=== PATIENT | female | born 1970 | race Caucasian/White ===

== ENCOUNTER → 2020-10-08 18:27 | Outpatient (CLI) | payer BC, SELFPAY ==
--- NOTE | ~2020-10-08 | MM_ITS ---
EXAMINATION: MM screening [facility] BI w gael HISTORY: Screening mammogram TECHNIQUE: Craniocaudal and mediolateral oblique 3-D tomosynthesis images were obtained and synthetic 2-D images were generated. CAD analysis was submitted and interpreted. COMPARISON: 08/14/2019, 07/21/2018, 05/16/2017 BREAST PARENCHYMAL COMPOSITION: The breasts are heterogeneously dense, which may obscure small masses . FINDINGS: There is no evidence of suspicious mass, calcification, or architectural distortion to sugg est malignancy in either breast. There has been no suspicious interval change. IMPRESSION: 1. No mammographic evidence of malignancy. 2. Recommend routine screening mammography in one year. BI-RADS Category 1: Negative Reviewed, dictated and finalized at location A. N DIPPER
== END ==
PROVIDERS: PCP Obstetrics & Gynecology; Visit Provider Obstetrics & Gynecology
DX: Z12.31 Encounter for screening mammogram for malignant neoplasm of breast (principal)
CPT/HCPCS: 77063; 77067

== ENCOUNTER 2020-10-14 13:28 | Outpatient (CLI) | payer BC, SELFPAY ==
--- NOTE | ~2020-10-14 | DEXA_ITS ---
Bone Density Report Name: Nova Plaza Age: 50 Sex: Female Ethnicity: White Date of : 1970 Indication: postmenopausal; height loss; Referring Provider: FRANCES MARIA Study: Bone densitometry was performed. Exam Date: October 14, 2020 Accession number: [id number] Bone Density: Region BMD T-score Z-score Classification AP Spine (L1-L4) 1.207 1.5 2.3 Normal Femoral Neck (Left) 0.797 -0.5 0.3 Normal Total Hip (Left) 1.034 0.8 1.3 Normal Total Hip Bilateral Avg 1.024 0.7 1.2 Normal Femoral Neck (Right) 0.798 -0.5 0.3 Normal Total Hip (Right) 1.013 0.6 1.1 Normal World Health Organization criteria for BMD impression classify patients as: Normal (T-score at or above -1.0), Osteopenia (T-score between -1.0 and -2.5), or Osteoporosis (T-score at or below -2.5). 10-year Fracture Risk: FRAX not reported because: All T-scores for Spine Total, Hip Total, Femoral Neck at or above -1.0 Clinical Information Provided by Patient: Smokes Has used the following medications: Vitamin D Patient maximum height was 68 Menopause Age: 47 No regular weight bearing exercise Drinks caffeinated beverages Onset of menses at age 12 Number of children 3 Impression: The patient has normal bone mass. The patient has risk factors, including: smoking. Discussion: BONE DENSITY IS ABOVE THE MINIMUM DESIRABLE LEVEL AT ALL SKELETAL SITES TESTED. This patient?s bone mineral density is above the minimum desirable level (T-score -1.0 or better) at all sites measured. The patient should follow a healthful lifestyle (good nutrition with adequate calcium and vitamin D, and appropriate weight-bearing exercise). Follow-Up: Consider repeating this study in 5 years or sooner if there is some new clinical indication. Reported by: [facility] on 10/14/2020 1:47:00 PM. Reviewed, dictated and finalized at location ADeep HANDY
== END 2020-10-14 13:29 | disposition home or self-care (01) ==
PROVIDERS: PCP Obstetrics & Gynecology; Visit Provider Obstetrics & Gynecology
DX: R29.890 Loss of height (principal); Z78.0 Asymptomatic menopausal state
CPT/HCPCS: 77080

== ENCOUNTER 2020-11-04 00:39 | Outpatient (CLI) | payer BC, SELFPAY ==
[2020-11-04 18:51] LABS: SARS-CoV-2 RNA PCR Negative
== END 2020-11-04 00:40 | disposition home or self-care (01) ==
LOC: ANHCOVIDDT 00:39
PROVIDERS: PCP Obstetrics & Gynecology; Visit Provider Internal Medicine Gastroenterology
DX: Z01.818 Encounter for other preprocedural examination (principal); Z20.828 Contact with and (suspected) exposure to other viral communicable diseases
CPT/HCPCS: 87635; C9803; U0003

== ENCOUNTER 2020-11-07 00:33 | Day surgery (SDC) | payer BC, SELFPAY ==
[2020-11-07 07:24] VITALS: BP 137/89; PULSE 84; RESP 20; TEMP 36.6; O2SAT 96; BMI 28.7
[2020-11-07] MEDS: LACTATED RINGERS 1,000 ML 150 ML IV CONT (07:40)
--- NOTE | 2020-11-07 07:57 | WPDANESEPPF ---
Anes - Initial Pre Proc Eval Procedure: Operation Date: 11/07/20 08:30 Proposed Procedures p Screening Colonoscopy - Octavio Ledesma MD Date/Time: 11/07/20 07:57 Surgeon: Octavio Ledesma MD Pre Op Diagnosis: neoplasm Screening Patient Data Age: 50 Gender: F Height: 5 ft 5 in Weight: 78.2 kg Last Vital Signs Temp 97.8 F 11/07/20 07:24 Pulse 84 11/07/20 07:24 Resp 20 11/07/20 07:24 BP 137/89 11/07/20 07:24 Pulse Ox 96 11/07/20 07:24 Allergies Allergy/AdvReac Type Severity Reaction Status Date / Time Penicillins Allergy Unknown Hives Verified 11/07/20 07:21 Home Medications Medication Instructions Recorded Confirmed Type cetirizine 10 mg tablet 10 mg PO DAILY 09/02/20 10/29/20 History bupropion HCl 150 mg tablet,12 hr 150 mg PO DAILY #90 tablet 09/05/20 10/29/20 Rx sustained-release buspirone 7.5 mg tablet 7.5 mg PO DAILY #90 tablet 09/05/20 10/29/20 Rx hydroxyzine HCl 25 mg tablet 25 mg PO TID PRN #30 tablet 09/05/20 10/29/20 Rx nitrofurantoin 100 mg PO Q12H #15 cap 09/05/20 10/29/20 Rx monohydrate/macrocrystals 100 mg capsule progesterone micronized 100 mg 100 mg PO .QHS cap 09/05/20 10/29/20 History capsule sertraline 50 mg tablet 50 mg PO DAILY #90 tablet 09/05/20 10/29/20 Rx spironolactone 50 mg tablet 50 mg PO DAILY PRN 09/05/20 10/29/20 History multivitamin [A To Z Multivitamin] 1 tablet PO DAILY 10/29/20 10/29/20 History thyroid (pork) [[place] Thyroid] 90 mg PO DAILY 10/29/20 10/29/20 History peg 3350-electrolytes 236 240 ml PO Q10M #4000 ml 11/04/20 Rx gram-22.74 gram-6.74 gram-5.86 gram solution Patient hx anesthesia problems: none Family hx anesthesia problems: none PMFSH Past Medical History Medical History Depression with anxiety Frequent UTI Herpes Miscarriage Surgical History Surgical History Delivery by section x3 History of abdominoplasty History of dilatation and curettage x3 Family History Family History Grandparent Hypertension Diabetes mellitus Mother Hypertension Family history of malignant neoplasm of uterus Heart disease Father Heart disease Other Carcinoma of colon Family history of malignant neoplasm of male breast Social History Social History Smoking status: Current some day smoker Tobacco type: cigarettes Second hand tobacco smoke exposure: No Smoking end date: 11/28/07 Alcohol intake: current Drinks per week: 10 Substance use: unknown Substance use type: does not use Spiritual care concerns: No Anes - Eval Final PreProcedure Day of Procedure 11/07/20 07:57 Patient weight: overweight Heart: regular rate and rhythm Lungs: clear to auscultation Airway: Mallampati scale class II Neurological: alert and oriented Last oral intake: >/= 8 hours ASA classification: II Emergent: no Anesthetic plan: proceed Anesthesia type and monitoring: general GIVS and standard monitoring Informed Consent: The patient's anesthetic plan and its attendant risks and benefits were discussed with the patient/family/POA. Questions were solicited and answers provided to the satisfaction of the patient/family/POA.
--- NOTE | 2020-11-07 08:43 | PM.HPGS ---
History of Present Illness History of Present Illness Consent: Risks, benefits, and alternatives have been discussed and questions answered. Patient agrees to proceed with procedure. Chief complaint: neoplasm Screening Narrative: Nova Plaza is a 50 year old female here for first screening colonoscopy Review of Systems Constitutional: Constitutional: Denies headache(s) and Denies weakness Eyes: Eyes: Denies blurry vision ENT: Reports Normal hearing present, Denies headache(s) and Denies neck pain Cardiovascular: Cardiovascular: Denies chest pain and Denies dyspnea Respiratory: Respiratory: Denies dyspnea Gastrointestinal: Gastrointestinal: Reports no additional gastrointestinal complaints Genitourinary: Genitourinary: Denies dysuria Musculoskeletal: Musculoskeletal: Denies neck pain Integumentary/Breasts: Skin/Breast: Denies dry skin Neurologic: Reports Normal hearing present, Denies headache(s) and Denies weakness Psychiatric: Psychiatric: Denies anxiety Endocrine: Endocrine: Denies change in body appearance Hematologic/Lymphatic: Hematologic/Lymphatic: Denies easy bleeding Allergic/Immunologic: Allergic/Immunologic: Denies urticaria PMFSH Past Medical History Medical History Depression with anxiety Frequent UTI Herpes Miscarriage Surgical History Surgical History Delivery by section x3 History of abdominoplasty History of dilatation and curettage x3 Family History Family History Grandparent Hypertension Diabetes mellitus Mother Hypertension Family history of malignant neoplasm of uterus Heart disease Father Heart disease Other Carcinoma of colon Family history of malignant neoplasm of male breast Social History Social History Smoking status: Current some day smoker Tobacco type: cigarettes Second hand tobacco smoke exposure: No Smoking end date: 11/28/07 Alcohol intake: current Drinks per week: 10 Substance use: unknown Substance use type: does not use Spiritual care concerns: No Meds Home Medications and Allergies Home Medications Medication Instructions Recorded Confirmed Type cetirizine 10 mg tablet 10 mg PO DAILY 09/02/20 10/29/20 History bupropion HCl 150 mg tablet,12 hr 150 mg PO DAILY #90 tablet 09/05/20 10/29/20 Rx sustained-release buspirone 7.5 mg tablet 7.5 mg PO DAILY #90 tablet 09/05/20 10/29/20 Rx hydroxyzine HCl 25 mg tablet 25 mg PO TID PRN #30 tablet 09/05/20 10/29/20 Rx nitrofurantoin 100 mg PO Q12H #15 cap 09/05/20 10/29/20 Rx monohydrate/macrocrystals 100 mg capsule progesterone micronized 100 mg 100 mg PO .QHS cap 09/05/20 10/29/20 History capsule sertraline 50 mg tablet 50 mg PO DAILY #90 tablet 09/05/20 10/29/20 Rx spironolactone 50 mg tablet 50 mg PO DAILY PRN 09/05/20 10/29/20 History multivitamin [A To Z Multivitamin] 1 tablet PO DAILY 10/29/20 10/29/20 History thyroid (pork) [[place] Thyroid] 90 mg PO DAILY 10/29/20 10/29/20 History peg 3350-electrolytes 236 240 ml PO Q10M #4000 ml 11/04/20 Rx gram-22.74 gram-6.74 gram-5.86 gram solution Allergies Allergy/AdvReac Type Severity Reaction Status Date / Time Penicillins Allergy Unknown Hives Verified 11/07/20 07:21 Vital Signs Vital Signs - 24 hr 11/07/20 07:24 Temperature 97.8 F Pulse Rate 84 Respiratory Rate 20 Blood Pressure 137/89 Pulse Oximetry 96 Exam Const: General: comfortable and no acute distress HENMT: General nose exam: Normal nares present Eyes: General: appearance normal, both eyes and all related structures Neck: Neck: no JVD Resp: Auscultation: clear to auscultation bilaterally Cardio: Rate: regular rate Rhythm: regular rhythm GI: Inspection: non-distended GI Palp
[2020-11-07 09:05] VITALS: BP 121/69; PULSE 77; RESP 20; O2SAT 98
[2020-11-07 09:15] VITALS: BP 101/62; PULSE 75; RESP 16; O2SAT 99
== END 2020-11-07 09:39 | disposition home or self-care (01) ==
PROVIDERS: PCP Obstetrics & Gynecology; Visit Provider Internal Medicine Gastroenterology
PROC: 0DJD8ZZ Inspection of Lower Intestinal Tract, Via Natural or Artificial Opening Endoscopic (ICD-10-PCS; CPT 45378; principal; 2020-11-07 08:30)
DX: Z12.11 Encounter for screening for malignant neoplasm of colon (principal); K64.8 Other hemorrhoids; F41.8 Other specified anxiety disorders; Z87.891 Personal history of nicotine dependence
CPT/HCPCS: 45378; J2704; J7120

== ENCOUNTER 2021-11-02 14:19 | Outpatient (CLI) | payer BC, SELFPAY ==
--- NOTE | ~2021-11-02 | XR_ITS ---
EXAMINATION: XR lumbar spine 2-3V EXAM DATE: 11/02/2021 14:44 INDICATION: M54.50 - Low back pain, unspecified. NKI. TECHNIQUE: Lumber spine frontal, lateral, lateral L5-S1 projections for interpretation. There is no prior study for comparison. FINDINGS: There is mild lumbar levoscoliosis. There is mild to moderate L3-4 and L4-5 disc disease, mild at the other lumbar levels. The vertebral bodies are aligned in the AP dimension. Mild to modera te lumbar facet arthropathy. Sacrum, sacroiliac joints, sacral arcuate lines are intact. Paraspinal s oft tissue is unremarkable. IMPRESSION: 1. Mild to moderate lumbar spondylosis. 2. Mild levoscoliosis. Reviewed, dictated and finalized at location A. PRIMARY CARE
== END 2021-11-02 14:20 | disposition home or self-care (01) ==
LOC: ANHIMG 14:25
PROVIDERS: PCP Internal Medicine; Visit Provider Nurse Practitioner
DX: M47.896 Other spondylosis, lumbar region (principal)
CPT/HCPCS: 72100

== ENCOUNTER 2021-11-03 13:18 | Outpatient (CLI) | payer BC, SELFPAY ==
--- NOTE | ~2021-11-03 | MM_ITS ---
EXAMINATION: MM screening [facility] BI w gael HISTORY: Screening TECHNIQUE: Craniocaudal and mediolateral oblique 3-D tomosynthesis images were obtained and synthetic 2-D images were generated. CAD analysis was submitted and interpreted. COMPARISON: Comparison to multiple prior studies sequentially, with oldest reviewed study dated 02/07. BREAST PARENCHYMAL COMPOSITION: The breasts are heterogeneously dense, which may obscure small masses . FINDINGS: There is no evidence of suspicious mass, calcification, or architectural distortion to sugg est malignancy in either breast. There has been no suspicious interval change. IMPRESSION: 1. No mammographic evidence of malignancy. 2. Recommend routine screening mammography in one year. BI-RADS Category 1: Negative Reviewed, dictated and finalized at location A. POLISHER
== END 2021-11-03 13:19 | disposition home or self-care (01) ==
LOC: ANHIMG 13:22
PROVIDERS: PCP Internal Medicine; Visit Provider Obstetrics & Gynecology
DX: Z12.31 Encounter for screening mammogram for malignant neoplasm of breast (principal)
CPT/HCPCS: 77063; 77067

== ENCOUNTER 2021-11-25 17:00 | Outpatient (RCR) | payer BC, SELFPAY ==
--- NOTE | 2021-11-02 12:23 | PTOPEVAL ---
PHYSICAL THERAPY EVALUATION Thank you for referring Nova Plaza to [facility].? Nova was evaluated for the dx of mid/low back pain. The patient is scheduled to be seen for therapy? 2 x/week for 4 weeks. Please review, sign, date and return this plan of care ISAAC. I agree with and certify that the following plan of care is medically necessary. Referring Physician Date Attending Provider: Trina Jackson NP *PT Outpatient Evaluation Start: 11/02/21 08:41 Freq: Status: Active Protocol: Document 11/02/21 08:41 MLV (Rec: 11/02/21 09:40 MLV [id number]) Therapy Assessment Status Assessment Status Assessment Status Evaluation Evaluation Information Problem Diagnosis mid/low back pain Onset 2020 Cause increased activity Additional Evaluation Detail The patient reports being more active at home/work and began having back pain. The pain became severe, couldn't get off couch or walk. The patient received an injection in glut and 2 rounds of steroids by mouth and now is some better. 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 The patient denies any prior bad back issues. The pt has low back pain radiating up to mid back. The pain has increased pain after having a busier day-soreness. Subjective Information The patient has a 14 y/o that Query Text:As Reported By Patient/ is most of her social life Family after work. Diagnostic Tests X-Rays For This Problem No: pt has not gone to get it yet Previous Treatments Previous Treatments For This Problem none for back Pain Assessment Timing of Pain Assessment Timing of Pain Assessment Assessment Pain Scale Pain Scale Used Numeric (1 - 10) Self Report Pain Assessment Back Reported Pain Level 6 Pain Description Aching,Soreness Pain Frequency Acute Other Pain Description 7 at end of day Pain Aggravating Factors None Pain Behaviors Restless Pain Score Pain Score 6: Self Report Interventions Used Interventions Used By Clinicians Education Pain Relief Interventions Used By Medication,Position Change Patient Other Alleviating Inter
--- NOTE | 2021-11-30 10:28 | PCPTNOTE ---
pt did not show for today's reeval; called and left voice message about today's appt;
--- NOTE | 2021-12-01 11:55 | PCPTNOTE ---
Patient cancelled scheduled appointment this date due to insurance issues. Did not reschedule at this time.
--- NOTE | 2021-12-11 10:08 | PCPTNOTE ---
Admitting Provider: Attending Provider: Trina Jackson NP Patient:Nova Plaza Date of :1970 Physical therapy discharge summary Patient has not returned for any further treatments since 11/25/2021, therefore she will be discharged at this time. She called clinic to state she was feeling better and did not feel she needed additional therapy services. She has been provided home program to maintain her level of function. Patient?s initial visit was on 11/02/2021 08:30 anshe had a total of 8 visits. The goals have been partially met at this time. Thank you for referring this patient to [facility]. Please review, sign, date and return this discharge summary ISAAC. I have been updated about the patient's current status and I agree with discharge from the above service at this time. Referring Physician Date
== END 2021-12-14 08:31 | disposition home or self-care (01) ==
LOC: ANHPT 17:00
PROVIDERS: PCP Internal Medicine; Visit Provider Nurse Practitioner
DX: M54.50 Low back pain, unspecified (principal)
CPT/HCPCS: 97014; 97110; 97140; 97162; G0283

== ENCOUNTER → 2022-12-20 12:36 | Outpatient (CLI) | payer BC, SELFPAY ==
--- NOTE | ~2022-12-20 | US_ITS ---
Pelvic ultrasound. Clinical History: Postmenopausal bleeding Technique: Realtime transabdominal and transvaginal scanning of the pelvis was performed. Color flow Doppler and Doppler spectral analysis were performed. Findings: The uterus is anteverted. The endometrial stripe has a thickness of 3 mm. No focal myometr ial mass is identified. Small amount of fluid present in the cervical canal. Probable cervical naboth chukc cysts. The right ovary measures 1.5 x 2.7 x 0.9 cm. No significant right ovarian or adnexal mass is seen. The left ovary measures 1.5 x 2.0 x 2.9 cm. No significant left ovarian or adnexal mass is seen. Vascular flow present in both ovaries on Doppler spectral analysis. There is no evidence of free fluid in the cul de sac. Impression: Small amount of fluid in cervical canal, nonspecific. No abnormal endometrial thickening. Reviewed, dictated and finalized at [facility]. 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 No abnormal endometrial thickening.
== END ==
PROVIDERS: PCP Internal Medicine; Visit Provider Obstetrics & Gynecology
DX: N95.0 Postmenopausal bleeding (principal)
CPT/HCPCS: 76830; 76856

== ENCOUNTER 2023-01-07 14:10 | Outpatient (CLI) | payer BC, SELFPAY ==
--- NOTE | ~2023-01-07 | MM_ITS ---
EXAMINATION: MM screening [facility] BI w gael HISTORY: Screening mammogram TECHNIQUE: Craniocaudal and mediolateral oblique 3-D tomosynthesis images were obtained and synthetic 2-D images were generated. CAD analysis was submitted and interpreted. COMPARISON: 11/03/2021, 10/08/2020, 08/14/2019 bilateral screening mammogram examinations BREAST PARENCHYMAL COMPOSITION: The breasts are heterogeneously dense, which may obscure small masses . FINDINGS: There is no evidence of suspicious mass, calcification, or architectural distortion to sugg est malignancy in either breast. There has been no suspicious interval change. IMPRESSION: 1. No mammographic evidence of malignancy. 2. Recommend routine screening mammography in one year. BI-RADS Category 1: Negative Reviewed, dictated and finalized at location A. NEERING PROFESSOR
== END 2023-01-07 14:11 | disposition home or self-care (01) ==
PROVIDERS: PCP Internal Medicine; Visit Provider Obstetrics & Gynecology
DX: Z12.31 Encounter for screening mammogram for malignant neoplasm of breast (principal)
CPT/HCPCS: 77063; 77067

== ENCOUNTER 2024-01-24 14:58 | Outpatient (CLI) | payer BC, SELFPAY ==
--- NOTE | ~2024-01-24 | MM_ITS ---
EXAMINATION: MM screening [facility] BI w gael HISTORY: Screening TECHNIQUE: Craniocaudal and mediolateral oblique 3-D tomosynthesis images were obtained and synthetic 2-D images were generated. CAD analysis was submitted and interpreted. COMPARISON: Comparison to multiple prior studies sequentially, with oldest reviewed study dated 05/16. BREAST PARENCHYMAL COMPOSITION: Dense: The breasts are heterogeneously dense, which may obscure small masses FINDINGS: There is no evidence of suspicious mass, calcification, or architectural distortion to sugg est malignancy in either breast. There has been no suspicious interval change. IMPRESSION: 1. No mammographic evidence of malignancy. 2. Recommend routine screening mammography in one year. BI-RADS Category 1: Negative Reviewed, dictated and finalized at location A. ERCIAL REAL ESTATE SALES MANAGER
== END 2024-01-24 14:59 | disposition home or self-care (01) ==
PROVIDERS: PCP Internal Medicine; Visit Provider Obstetrics & Gynecology
DX: Z12.31 Encounter for screening mammogram for malignant neoplasm of breast (principal)
CPT/HCPCS: 77063; 77067

== ENCOUNTER 2024-02-03 12:05 | Outpatient (CLI) | payer BC, SELFPAY ==
--- NOTE | ~2024-02-03 | XR_ITS ---
Right Knee Technique: AP, lateral, and sunrise views were obtained. Clinical History: Pain Findings: No fracture or dislocation is seen. Osseous alignment is anatomic. Joint spaces are preserv ed without degenerative or erosive change. Soft tissues are unremarkable. No joint effusion is seen. Impression: Unremarkable right knee radiographs. Reviewed, dictated and finalized at location . ER HARVESTER Impression: Unremarkable right knee radiographs.
== END 2024-02-03 12:06 ==
LOC: GOSHIMG 12:07
PROVIDERS: PCP Clinical Nurse Specialist; Visit Provider Clinical Nurse Specialist
DX: M25.561 Pain in right knee (principal)
CPT/HCPCS: 73562